=== PATIENT | male | born 1945 | race Caucasian/White ===

== ENCOUNTER 2024-08-15 16:21 | Emergency (ER) | payer BC ==
[2024-08-15] MEDS ORDERED: LIDOCAINE 1% 20 ML MDV ONE (19:32)
--- NOTE | 2024-08-15 19:57 | ER ---
Nurse's Notes [facility] Name: Ann Marie Whitman Age: 78 yrs Sex: Male : 1945 Arrival Date: 08/15/2024 Time: 16:21 Bed 9 Private MD: Diagnosis: Encounter for other specified surgical aftercare Presentation: 08/15 17:11 Chief complaint: Patient states: he had sutures removed at the [facility] office ap3 this morning, and since he left their office he believes the wound has re-opened. patient states the sutures were placed approx one week ago. Coronavirus screen: At this time, the client does not indicate any symptoms associated with coronavirus-19. Ebola Screen: No symptoms or risks identified at this time. Initial Sepsis Screen: Does the patient meet any 2 criteria? HR > 90 bpm. Does the patient have a suspected source of infection? No. Patient's initial sepsis screen is negative. Risk Assessment: Do you want to hurt yourself or someone else? Patient reports no desire to harm self or others. Onset of symptoms was August 15, 2024. 17:11 Method Of Arrival: Ambulatory ap3 17:11 Acuity: BUTCH 4 ap3 Triage Assessment: 17:14 General: Appears in no apparent distress. Behavior is calm, cooperative, appropriate ap3 for age. Pain: Denies pain. Neuro: Level of Consciousness is awake, alert, obeys commands, Oriented to person, place, time, situation. Cardiovascular: Patient's skin is warm and dry. Respiratory: Airway is patent Respiratory effort is even, unlabored, Respiratory pattern is regular, symmetrical. Derm: Reports wound in right arm pit. Historical: - Allergies: 17:13 PENICILLINS; ap3 - PMHx: 17:13 Hypertensive disorder; Diabetes mellitus; Sleep apnea; Atrial fibrillation; ap3 - Immunization history:: Client reports receiving the 2nd dose of the Covid vaccine, Flu vaccine is up to date. - Infectious Disease History:: Denies. - Social history:: Smoking status: Patient denies any tobacco usage or history of. Screenin:14 [facility] ED Fall Risk Assessment (Adult) History of falling in the last 3 months, ap3 including since admission No falls in past 3 months (0 pts) Confusion or Disorientation No (0 pts) Intoxicated or Sedated No (0 pts) Impaired Gait No (0 pts) Mobility Assist Device Used No (0 pt) Altered Elimination No (0 pt) Score/Fall Risk Level 0 - 2 = Low Risk Oriented to surroundings, Maintained a safe environment, Educated pt \T\ family on fall prevention, incl call for assistance when getting out of bed, Assessed \T\ reinforced patient's understanding of fall precautions, Hourly rounding (assess needs \T\ fall precautionary measures) done, Used ambulatory aids as needed (educated on \T\ assisted with). Abuse screen: Denies threats or abuse. Nutritional screening: No deficits noted. Tuberculosis screening: No symptoms or risk factors identified. Assessment: 19:35 General: Appears comfortable, well groomed, well developed, well nourished, Behavior is me1 calm, cooperative, appropriate for age. Pain: Denies pain. Neuro: Level of Consciousness is awake, alert, obeys commands, Oriented to person, place, time, situation, Appropriate for age. Cardiovascular: Patient's skin is warm and dry. Respiratory: Airway is patent Respiratory effort is even, unlabored, Respiratory pattern is regular, symmetrical. GI: No signs and/or symptoms were reported involving the gastrointestinal system. : No signs and/or symptoms were reported regarding the genitourinary system. EENT: No signs and/or symptoms were reported regarding the EENT system. Musculoskeletal: No signs and/or symptoms reported regarding the musculoskeletal system. 19:41 Derm: Wound noted right subscapular area Wound is laceration that had sutures removed me1 earlier today and has opened back up. Vital Signs: 17:11 BP 147 / 87 LA (auto/); Pulse 69; Resp 18; Temp 98.4; Pulse Ox 98% ; Weight 111.13 kg; ap3 Height 6 ft. 0 in. ; Pain 0/10; 19:55 BP 138 / 79; Pulse 67; Resp 17; Temp 98.1; Pulse Ox 98% ; me1 17:11 Body Mass Index 33.23 (111.13 kg, 182.88 cm) ap3 17:11 Pain Scale: Adult ap3 ED Course: 16:25 Patient arrived in ED. mr 16:26 Jeevan Schuler PA is PHCP. cp 16:26 Parker Conrad MD is Attending Physician. cp 17:13 Triage completed. ap3 17:15 Arm band placed on right wrist. ap3 19:31 Magdalena Moody, RN is Primary Nurse. me1 19:35 Patient has correct armband on for positive identification. Bed in low position. Call me1 light in reach. Side rails up X 1. Provided Education on: POC. Verbalized understanding.. 19:35 No provider procedures requiring assistance completed. Patient did not have IV access me1 during this emergency room visit. Administered Medications: 19:33 Drug: Lidocaine Infiltration (1 %) 5 ml Infiltration once {Note: to be administered by ms1 BANG Mejía.} Route: Infiltration; 19:57 Follow up: Response: No adverse reaction; Pain is decreased me1 19:33 Drug: Lidocaine Infiltration (1 %) 5 ml 5 ml Infiltration once; to bedside {Note: to be me1 administered by BANG Mejía.} Volume: 5 ml; Route: Infiltration; 19:57 Follow up: Response: No adverse reaction; Pain is decreased me1 Medication: 19:35 VIS not applicable for this client. ms1 Outcome: 19:56 Discharge ordered by . shannon 20:08 Discharged to home ambulatory, ms1 20:08 Condition: stable 20:08 Discharge instructions given to patient, Instructed on discharge instructions, follow up and referral plans. Demonstrated understanding of instructions, follow-up care, 20:09 Patient left the ED. ms1 Signatures: Carmel Salas, Kalin Gagnon mr Jeevan Schuler PA PA cp Prokisch, Amanda, RN RN ap3 Magdalena Moody, RN RN ms1 Corrections: (The following items were deleted from the chart) 19:41 17:11 Chief complaint: Patient states: he had sutures removed at the [employer] assistant ms1 office this morning, and since he left their office he believes the wound has re-opened. patient states the sutures were placed approx one week ago ap3 19:42 19:35 Derm: Wound noted Left first web space Wound is laceration with sutures ms1 me1
--- NOTE | 2024-08-15 19:57 | EDPHYS ---
Physician Documentation [facility] Name: Ann Marie Whitman Age: 78 yrs Sex: Male : 1945 Arrival Date: 08/15/2024 Time: 16:21 Bed 9 Private MD: ED Physician Parker Conrad HPI: 08/15 19:35 This 78 yrs old Male presents to ER via Ambulatory with complaints of Wound Check. cp 19:35 Patient presents to ED for wound chest. Reports having cyst removed from right lateral cp upper back 1 week ago and sutures removed today at [facility]. Patient concerned that wound is open and bleeding. Historical: - Allergies: 17:13 PENICILLINS; ap3 - PMHx: 17:13 Hypertensive disorder; Diabetes mellitus; Sleep apnea; Atrial fibrillation; ap3 - Immunization history:: Client reports receiving the 2nd dose of the Covid vaccine, Flu vaccine is up to date. - Infectious Disease History:: Denies. - Social history:: Smoking status: Patient denies any tobacco usage or history of. ROS: 19:35 Constitutional: history per hpi cp 19:35 Skin: Positive for of the right lateral upper back area, open wound, Exam: 19:40 Head/Face: Normocephalic, atraumatic. cp 19:40 Constitutional: The patient appears in no acute distress, alert, awake, non-toxic, well developed, well nourished, 19:40 Chest/axilla: Inspection: normal, 19:40 Cardiovascular: Rate: normal, 19:40 Respiratory: the patient does not display signs of respiratory distress, Respirations: normal, 19:40 Skin: quarter size wound noted right lateral upper back with very mild bleeding, minimal erythema noted and no purulent drainage. Vital Signs: 17:11 BP 147 / 87 LA (auto/); Pulse 69; Resp 18; Temp 98.4; Pulse Ox 98% ; Weight 111.13 kg; ap3 Height 6 ft. 0 in. ; Pain 0/10; 19:55 BP 138 / 79; Pulse 67; Resp 17; Temp 98.1; Pulse Ox 98% ; me1 17:11 Body Mass Index 33.23 (111.13 kg, 182.88 cm) ap3 17:11 Pain Scale: Adult ap3 MDM: 17:16 Medical Screening Exam initiated faby 19:40 Differential diagnosis: cellulitis, abscess. 19:55 Data reviewed: vital signs, nurses notes, and as a result, I will discharge patient. 19:55 Counseling: I had a detailed discussion with the patient and/or guardian regarding the cp historical points, exam findings, and any diagnostic results supporting the discharge/admit diagnosis, to return to the emergency department if symptoms worsen or persist or if there are any questions or concerns that arise at home. Special discussion: I discussed in detail with the patient the higher chance of wound infection based on his presenting history. 08/15 19:38 Order name: Dressing - Wound; Complete Time: 19:55 cp 08/15 19:38 Order name: Gloves, Sterile; Complete Time: 19:55 cp 08/15 19:38 Order name: Setup Suture Tray; Complete Time: 19:55 cp Administered Medications: 19:33 Drug: Lidocaine Infiltration (1 %) 5 ml Infiltration once {Note: to be administered by me1 PA. Alfonzo} Route: Infiltration; 19:57 Follow up: Response: No adverse reaction; Pain is decreased [facility] [place] 19:33 Drug: Lidocaine Infiltration (1 %) 5 ml 5 ml Infiltration once; to bedside {Note: to be me1 administered by PA. Alfonzo} Volume: 5 ml; Route: Infiltration; 19:57 Follow up: Response: No adverse reaction; Pain is decreased [facility] [place] Disposition Summary: 08/15/24 19:56 Discharge Ordered Notes: Location: Home cp Problem: new cp Symptoms: have improved cp Condition: Stable cp Diagnosis - Encounter for other specified surgical aftercare cp Followup: cp - With: Private Physician - When: 2 - 3 days - Reason: Wound Recheck Discharge Instructions: - Discharge Summary Sheet cp - Nonsutured Laceration Care cp - Wound Care, Adult cp Forms: - Medication Reconciliation Form cp - Antibiotic Education cp - Prescription Opioid Use cp - Patient Portal Instructions cp - Leadership Thank You Letter cp Signatures: Jeevan Mcmullen MD MD cha Page, Corey, PA PA cp Prokisch, Amanda RN RN ap3 Magdalena Moody RN RN me1 Corrections: (The following items were deleted from the chart) 19:38 19:32 Suture Removal ordered. cp cp
[2024-08-16 08:36] VITALS: O2SAT 98
[2024-08-16 08:37] VITALS: BP 138/79; TEMP 98.1
== END 2024-08-15 20:09 | disposition home or self-care (01) ==
LOC: ER 16:21
DX: T81.31XA Disruption of external operation (surgical) wound, not elsewhere classified, initial encounter (principal)
CPT/HCPCS: 99283; J2003